=== PATIENT | male | born 1960 | race Caucasian/White ===

== ENCOUNTER 2021-03-01 13:45 | Outpatient (CLI) | payer BC, SELFPAY ==
--- NOTE | ~2021-03-01 | CT_ITS ---
EXAMINATION: CT brain wo con DATE: 03/01/2021 14:14 INDICATION: Diplopia. Other mechanical strabismus. TECHNIQUE: Computed tomography (CT) of the head was performed without intravenous contrast. The mA wa s adjusted according to patient size. Iterative reconstruction technique was employed. The dose-lengt h product was 605.33 mGy-cm. COMPARISON: None FINDINGS: There are scattered areas of low attenuation in the cerebral white matter. There is a lacun ar infarct in right thalamus. There is no intracranial hemorrhage or abnormal mass lesion. There is m ucosal thickening in the paranasal sinuses. There is thickening sclerosis of the gregorio of right front al sinus. There are erosions of the medial wall of right orbit. The mastoid air cells are normal. IMPRESSION: 1. 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 2. Mild nonspecific cerebral white matter disease, which likely represents chronic small vessel ische yamini disease. 3. Chronic sinusitis involving the right frontal and anterior right ethmoid sinuses. Reviewed, dictated and finalized at location A. IMPRESSION: 1. 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 2. 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 3. Chronic sinusitis involving the right frontal and anterior right ethmoid sin uses.
--- NOTE | ~2021-03-01 | CT_ITS ---
EXAMINATION: CT orbit BI wo con DATE: 03/01/2021 14:14 INDICATION: Other mechanical strabismus. TECHNIQUE: Computed tomography (CT) of the orbits was performed without intravenous contrast. Automat ed exposure control and iterative reconstruction technique were employed. The dose-length product was 143.38 mGy-cm. COMPARISON: None. FINDINGS: The extraocular muscles and optic nerves are normal. There is rightward deviation the nasal septum. There is mucosal thickening in the paranasal sinuses. There is thickening sclerosis the wall s of right frontal sinus. There are erosions in the medial wall of right orbit at the anterior ethmoi d sinuses. IMPRESSION: 1. Chronic sinusitis involving the right frontal and anterior right ethmoid sinuses. Note that this f inding is in close proximity to right superior oblique muscle. Reviewed, dictated and finalized at location A. IMPRESSION: 1. Chronic sinusitis involving the right frontal and anterior right ethmoid sin uses. Note that this finding is in close proximity to right superior oblique mu scle.
== END 2021-03-01 13:46 | disposition home or self-care (01) ==
LOC: ANHIMG 13:49
PROVIDERS: PCP Family Medicine
DX: H50.69 Other mechanical strabismus (principal); J32.8 Other chronic sinusitis; Z86.73 Personal history of transient ischemic attack (TIA), and cerebral infarction without residual deficits; R90.82 White matter disease, unspecified
CPT/HCPCS: 70450; 70480